=== PATIENT | female | born 1980 | race Caucasian/White ===

== ENCOUNTER 2018-12-14 21:54 | Emergency (ER) | payer OTHER ==
[2018-12-14 22:07] VITALS: BP 153/76; PULSE 116; TEMP 99; BMI 24.6
--- NOTE | 2018-12-14 22:21 | PDOC ---
Attending Attestation - HPI HPI: 12/14/18 22:22 The patient is a 38 year old female, with a significant past medical history of DM, who presents to the emergency department with, a laceration to the left wrist. Patient notes the metal portion of her broom lacerated from her left forearm to hand. Patient is left hand dominant. She denies recent fevers, chills, headache or dizziness. She denies recent nausea, vomit, diarrhea or constipation. She denies recent dysuria, frequency, urgency or hematuria. She denies recent chest pain or shortness of breath. Allergies: Contrast (IV and Oral) - Physicial Exam PE: 12/14/18 22:22 Agree with resident exam. <Raúl Daniel - Last Filed: 12/14/18 22:21> - Resident Resident Name: Russell Mann - ED Attending Attestation I have performed the following: I have examined & evaluated the patient, The case was reviewed & discussed with the resident, I agree w/resident's findings & plan - Medical Decision Making 12/14/18 22:32 38-year-old female with abrasion and avulsion to the left hand Wound cleansed extensively See resident note for full description of procedure Hand neurovascularly intact distally Coagulation dressing applied as well as Steri-Strips Patient will be discharged on antibiotics with a wound check in 48 hours due to history of diabetes <Marlen Valencia - Last Filed: 12/14/18 22:33> Attestations - Attestations 12/14/18 22:22 Documentation prepared by Raúl Daniel, acting as medical detail representative for Marlen Valencia DO. <Raúl Daniel - Last Filed: 12/14/18 22:21>
[2018-12-14] MEDS ORDERED: DIPHTH,PERTUSS(ACELL),TET 0.5 ML DISP.SYRIN IM ONE ×2 (22:45→22:46)
--- NOTE | 2018-12-14 22:50 | PDOC ---
History of Present Illness - General Chief Complaint: Laceration Stated Complaint: CUT ON LEFT LOWER ARM Time Seen by Provider: 12/14/18 22:20 History Source: Patient Exam Limitations: No Limitations - History of Present Illness Initial Comments: 12/14/18 23:20 The patient is a 38F with a PMH of DM who presents to the ER with complaints of a hand abrasion. The patient states that she was cleaning off her car with a broom and the metal part of the broom cut her hand. She denies numbness, tingling, and weakness in her hand. She denies any other injuries. Past History - Past Medical History Allergies/Adverse Reactions: Allergies Allergy/AdvReac Type Severity Reaction Status Date / Time Iodinated Contrast- Oral and Allergy Verified 12/14/18 22:01 IV Dye [Iodinated Contrast Media - IV Dye] Home Medications: Ambulatory Orders Insulin (Novolog) [Novolog -] 0 units SQ ACHS 06/02/14 Canagliflozin [Invokana] 100 mg PO PRN 01/13/17 Insulin Glargine,Hum.rec.anlog [Lantus Solostar PEN (NF)] 40 units SQ HS Cephalexin Monohydrate [Keflex -] 500 mg PO BID #10 capsule 12/14/18 Cephalexin Monohydrate [Keflex -] 500 mg PO BID #10 capsule 12/14/18 Ibuprofen 400 mg PO QID PRN #10 tablet 12/14/18 COPD: No Diabetes: Yes (TYPE 2) GI Disorders: Yes (colitis) - Surgical History Abdominal Surgery: Yes (bilateral tubal ligation) - Suicide/Smoking/Psychosocial Hx Smoking Status: Yes Smoking History: Never smoked Number of Cigarettes Smoked Daily: 2 'Breaking Loose' booklet given: 01/13/17 Hx Alcohol Use: No Drug/Substance Use Hx: No Substance Use Type: None Hx Substance Use Treatment: No Review of Systems - Review of Systems Able to Perform ROS?: Yes Is the patient limited Tamazight proficient: No Constitutional: No: Chills, Fever HEENTM: No: Blurred Vision Respiratory: No: Cough, Shortness of Breath Cardiac (ROS): No: Chest Pain, Syncope ABD/GI: No: Nausea, Vomiting Integumentary: Yes: Other (Abrasion over L hand) Neurological: No: Numbness, Tingling, Weakness *Physical Exam - Vital Signs Last Vital Signs Temp Pulse Resp BP Pulse Ox 99 F 116 H 20 153/76 99 12/14/18 22:01 12/14/18 22:01 12/14/18 22:01 12/14/18 22:01 12/14/18 22:01 - Physical Exam General Appearance: Yes: Nourished, Appropriately Dressed. No: Apparent Distress HEENT: positive: Normal Voice, Hearing Grossly Normal Integumentary: positive: Other (6cm superficial abrasion over palmar surface of L hand, clean) Moderate Sedation - Procedure Monitoring Vital Signs: Procedure Monitoring Vital Signs Temperature 99 F 12/14/18 22:01 Pulse Rate 116 H 12/14/18 22:01 Respiratory Rate 20 12/14/18 22:01 Blood Pressure 153/76 12/14/18 22:01 O2 Sat by Pulse Oximetry (%) 99 12/14/18 22:01 Procedures - Laceration/Wound Repair Left Volar Hand Wound Length: 5.0 to 7.5 cm Wound Explored: clean Wound's Depth, Shape: superficial Irrigated w/ Saline: Yes Betadine Prep: No Anesthesia: 1% Lidocaine Amount of Anesthetic (ccs): 2 Wound Debrided: minimal Wound Repaired With: Steri-strips Sterile Dressing Applied: Yes Splint Applied: No Sling Applied: No ED Treatment Course - Medications Given in the ED: ED Medications Discontinued Medications Generic Name Dose Route Start Last Admin Trade Name Sanyaq PRN Reason Stop Dose Admin Oxycodone/Acetaminophen 1 combo 12/14/18 22:24 12/14/18 22:35 Percocet 5/325 - PO 12/14/18 22:25 1 combo ONCE ONE Administration Oxycodone/Acetaminophen 1 combo 12/14/18 22:32 12/14/18 22:35 Percocet 5/325 - PO 12/14/18 22:33 1 combo ONCE ONE Administration Medical Decision Making - Medical Decision Making 12/14/18 23:23 The patient is a 38F with a PMH of DM who presents to the ER with a superficial hand abrasion. It was cleaned and surgicel was applied to the proximal wrist. Steri strips applied. Will give abx and d/c home with 48 hour f/u. *DC/Admit/Observation/Transfer Diagnosis at time of Disposition: Abrasion - Discharge Dispostion Disposition: HOME Condition at time of disposition: Stable Decision to Admit order: No - Prescriptions Prescriptions: Cephalexin Monohydrate [Keflex -] 500 mg PO BID #10 capsule Cephalexin Monohydrate [Keflex -] 500 mg PO BID #10 capsule Ibuprofen 400 mg PO QID PRN #10 tablet PRN Reason: Pain - Referrals Referrals: Eulogio Ruiz [Primary Care Provider] - - Patient Instructions Printed Discharge Instructions: DI for Laceration Repair Additional Instructions: Please follow up in the ER for a wound check in 48 hours. Keep the area clean and dry for 24 hours. After 24 hours, you can clean it gently and pat it dry. Please take your medications as prescribed. Please return to the ER if symptoms persist, worsen, or new symptoms arise. - Post Discharge Activity
== END 2018-12-14 23:21 | disposition home or self-care (01) ==
LOC: JER 21:54
PROC: 3E0234Z Introduction of Serum, Toxoid and Vaccine into Muscle, Percutaneous Approach (ICD-10-PCS; principal; 2018-12-14)
DX: S60.512A Abrasion of left hand, initial encounter (principal); W27.8XXA Contact with other nonpowered hand tool, initial encounter; Y93.89 Activity, other specified; Y92.89 Other specified places as the place of occurrence of the external cause; Y99.8 Other external cause status; E11.9 Type 2 diabetes mellitus without complications; Z79.4 Long term (current) use of insulin
CPT/HCPCS: 90471; 90715; 99283-25

== ENCOUNTER 2018-12-16 13:58 | Emergency (ER) | payer OTHER ==
[2018-12-16 14:24] VITALS: BP 101/59; TEMP 98.7; BMI 23.6
--- NOTE | 2018-12-16 15:21 | PDOC ---
Suture Removal/Wound Check HPI - History of Present Illness Chief Complaint: Revisit,Wound Recheck Stated Complaint: HAND INJURY Time Seen by Provider: 12/16/18 14:49 History Source: Yes: Patient, Old Records Exam Limitations: Yes: No Limitations Treated at: [facility] Date of Last ED visit: 12/14/18 - Previous ED Treatment Type of procedure performed on last visit: Yes: Laceration Repair Tetanus Immunization: Yes: Up to Date Past History - Past Medical History Allergies/Adverse Reactions: Allergies Allergy/AdvReac Type Severity Reaction Status Date / Time Iodinated Contrast- Oral and Allergy Verified 12/14/18 22:01 IV Dye [Iodinated Contrast Media - IV Dye] Home Medications: Ambulatory Orders Insulin (Novolog) [Novolog -] 0 units SQ ACHS 06/02/14 Canagliflozin [Invokana] 100 mg PO PRN 01/13/17 Insulin Glargine,Hum.rec.anlog [Lantus Solostar PEN (NF)] 40 units SQ HS Cephalexin Monohydrate [Keflex -] 500 mg PO BID #10 capsule 12/14/18 Cephalexin Monohydrate [Keflex -] 500 mg PO BID #10 capsule 12/14/18 Ibuprofen 400 mg PO QID PRN #10 tablet 12/14/18 COPD: No Diabetes: Yes (TYPE 2) GI Disorders: Yes (colitis) - Surgical History Abdominal Surgery: Yes (bilateral tubal ligation) - Immunization History Immunization Up to Date: Yes - Suicide/Smoking/Psychosocial Hx Smoking Status: Yes Smoking History: Never smoked Have you smoked in the past 12 months: No Number of Cigarettes Smoked Daily: 2 Information on smoking cessation initiated: No 'Breaking Loose' booklet given: 01/13/17 Hx Alcohol Use: No Drug/Substance Use Hx: No Substance Use Type: None Hx Substance Use Treatment: No *Physical Exam - Vital Signs Last Vital Signs Temp Pulse Resp BP Pulse Ox 98.7 F 101 H 20 101/59 L 99 12/16/18 14:20 12/16/18 14:20 12/16/18 14:20 12/16/18 14:20 12/16/18 14:20 Moderate Sedation - Procedure Monitoring Vital Signs: Procedure Monitoring Vital Signs Temperature 98.7 F 12/16/18 14:20 Pulse Rate 101 H 12/16/18 14:20 Respiratory Rate 20 12/16/18 14:20 Blood Pressure 101/59 L 12/16/18 14:20 O2 Sat by Pulse Oximetry (%) 99 12/16/18 14:20 Medical Decision Making - Medical Decision Making 12/16/18 15:32 This is a 38-year-old female with insulin-dependent diabetes initially seen here on 12/14 for laceration to the palmar aspect of her (dominant) hand and wrist. Wound was not closed at that time as there is significant abrasion and insufficient skin to allow for laceration repair with sutures. Steri-Strips were placed and patient was started on cephalexin. She was directed to return today for reevaluation. On exam, there are no signs of infection. She denies fevers/chills or any other systemic symptoms. 2 of the Steri-Strips have fallen off and wound is not yet well approximated. Wound was cleaned with saline and Steri-Strips reapplied. Petroleum gauze and sterile dressing placed. Patient referred to hand surgery for further evaluation. Repeat heart rate is 102. *DC/Admit/Observation/Transfer Diagnosis at time of Disposition: Insulin dependent diabetes mellitus Hand injury Qualifiers: Encounter type: initial encounter Laterality: left Qualified Code(s): S69.92XA - Unspecified injury of left wrist, hand and finger(s), initial encounter - Discharge Dispostion Disposition: HOME Condition at time of disposition: Stable - Referrals Referrals: Cristi Neff MD [Staff Physician] - Call tomorrow (Surgery) - Patient Instructions Printed Discharge Instructions: DI for Laceration Repair -- Simple Additional Instructions: -Keep the wound clean and dry, change dressings as discussed -Continue cephalexin for the full course -Follow up with hand surgery (referral enclosed) -Return here for signs of infection: redness, tenderness, pus, etc., or for any other concerning symptoms - Post Discharge Activity
[2018-12-16 15:44] VITALS: PULSE 93
== END 2018-12-16 15:43 | disposition home or self-care (01) ==
LOC: JERFT 13:58
DX: Z09 Encounter for follow-up examination after completed treatment for conditions other than malignant neoplasm (principal); S69.82XD Other specified injuries of left wrist, hand and finger(s), subsequent encounter; E10.9 Type 1 diabetes mellitus without complications; Z79.4 Long term (current) use of insulin; W27.8XXD Contact with other nonpowered hand tool, subsequent encounter
CPT/HCPCS: 99281-25

== ENCOUNTER 2021-09-29 17:52 | Emergency (ER) | payer OTHER ==
[2021-09-29 18:06] VITALS: TEMP 98.4; BMI 23.2
[2021-09-29] MEDS ORDERED: SODIUM CHLORIDE 1,000 ML IV STA (18:30)
[2021-09-29 19:08] LABS: BASO % 0.3 % (0-2.0); EOS % 0.8 % (0-4.5); HEMATOCRIT 37.4 % (32.4-45.2); HEMOGLOBIN 12.7 GM/dL (10.7-15.3); LYMPH % 15.8 % (8-40); MCH 29.3 pg (25.7-33.7); MCHC 33.9 g/dl (32.0-36.0); MEAN CELL VOLUME 86.7 fl (80-96); MEAN PLT VOLUME 7.1 fl (7.5-11.1); MONO % 8.9 % (3.8-10.2); NEUT % 74.2 % (42.8-82.8); PLATELET COUNT 227 10^3/uL (134-434); RBC 4.31 M/mm3 (3.60-5.2); RDW 14.9 % (11.6-15.6); WHITE BLOOD COUNT 6.2 K/mm3 (4.0-10.0)
[2021-09-29 19:14] LABS: EPI CELLS 2 /uL (0-25.1); HCG,QUALITATIVE URINE Negative; HYALINE CASTS 1 /uL (0-3.1); URINE APPEARANCE CLOUDY; URINE BACTERIA 3819 /uL (0-1359); URINE BILIRUBIN NEGATIVE (NEGATIVE); URINE COLOR YELLOW; URINE GLUCOSE (UA) 3+ (NEGATIVE); URINE KETONE NEGATIVE (NEGATIVE); URINE LEUK ESTERASE 2+ (NEGATIVE); URINE NITRITE NEGATIVE (NEGATIVE); URINE PROTEIN 1+ (NEGATIVE); URINE RBC 96 /uL (0-23.9); URINE UROBILINOGEN 0.2 mg/dL (0.2-1.0); URINE WBC 3411 /uL (0-25.8)
[2021-09-29 19:16] LABS: ALBUMIN 3.3 g/dl (3.4-5.0); CALCIUM 8.7 mg/dL (8.5-10.1)
[2021-09-29 19:17] LABS: BLOOD UREA NITROGEN 10.6 mg/dL (7-18)
[2021-09-29 19:21] LABS: TOT PROT 7.2 g/dl (6.4-8.2)
[2021-09-29] MEDS ORDERED: CEFTRIAXONE 1 GM in DEXTROSE 5%-WATER - 50 ML IVPB ONE (19:39)
[2021-09-29] MEDS ORDERED: ACETAMINOPHEN 1000 MG/100 ML BAG IVPB ONE (19:45)
[2021-09-29] MEDS ORDERED: ACETAMINOPHEN INJECTION 100 ML IVPB ONE (19:48)
[2021-09-29] MEDS ORDERED: CEFTRIAXONE 1 GM/50 ML BAG ONE (19:48)
[2021-09-29 20:25] LABS: BILIRUBIN,TOTAL 0.6 mg/dL (0.2-1)
[2021-09-29 20:40] VITALS: BP 110/63; PULSE 96
== END 2021-09-29 20:57 | disposition home or self-care (01) ==
LOC: JER 17:52
PROC: 3E03329 Introduction of Other Anti-infective into Peripheral Vein, Percutaneous Approach (ICD-10-PCS; principal; 2021-09-29)
PROC: 3E033NZ Introduction of Analgesics, Hypnotics, Sedatives into Peripheral Vein, Percutaneous Approach (ICD-10-PCS; 2021-09-29)
PROC: 3E0337Z Introduction of Electrolytic and Water Balance Substance into Peripheral Vein, Percutaneous Approach (ICD-10-PCS; 2021-09-29)
DX: N12 Tubulo-interstitial nephritis, not specified as acute or chronic (principal); E11.65 Type 2 diabetes mellitus with hyperglycemia
CPT/HCPCS: 36415; 80053; 81003; 84703; 85025; 87086; 87186; 96361; 96365; 96375; 99284-25; C9803-CS; U0003; U0005

== ENCOUNTER 2021-09-30 08:22 | Emergency (ER) | payer OTHER ==
[2021-09-30 08:39] VITALS: BP 144/80; PULSE 124; TEMP 98.5; BMI 23.9
[2021-09-30] MEDS ORDERED: TAMSULOSIN HCL 0.4 MG CAP PO ONE (08:56)
[2021-09-30] MEDS ORDERED: KETOROLAC TROMETHAMINE 30 MG/1 ML VIAL IM ONE (08:57)
[2021-09-30] MEDS ORDERED: TAMSULOSIN HCL 0.4 MG CAP ONE (09:10)
[2021-09-30] MEDS ORDERED: KETOROLAC TROMETHAMINE 30 MG/1 ML VIAL ONE (09:10)
[2021-09-30 10:33] LABS: BASO % 0.3 % (0-2.0); EOS % 0.1 % (0-4.5); HEMATOCRIT 34.4 % (32.4-45.2); HEMOGLOBIN 11.9 GM/dL (10.7-15.3); LYMPH % 4.7 % (8-40); MCH 29.7 pg (25.7-33.7); MCHC 34.8 g/dl (32.0-36.0); MEAN CELL VOLUME 85.4 fl (80-96); MONO % 8.5 % (3.8-10.2); NEUT % 86.4 % (42.8-82.8); PLATELET COUNT 200 10^3/uL (134-434); RBC 4.02 M/mm3 (3.60-5.2); RDW 14.9 % (11.6-15.6); WHITE BLOOD COUNT 9.4 K/mm3 (4.0-10.0)
[2021-09-30 11:31] LABS: BLOOD UREA NITROGEN 6.9 mg/dL (7-18); CALCIUM 8.4 mg/dL (8.5-10.1)
[2021-09-30 11:34] LABS: CREATININE 0.7 mg/dL (0.55-1.3)
[2021-09-30 11:36] LABS: BILIRUBIN,TOTAL 0.9 mg/dL (0.2-1); TOT PROT 6.7 g/dl (6.4-8.2)
== END 2021-09-30 11:55 | disposition home or self-care (01) ==
LOC: JER 08:22
PROC: 3E0233Z Introduction of Anti-inflammatory into Muscle, Percutaneous Approach (ICD-10-PCS; principal; 2021-09-30)
DX: R10.9 Unspecified abdominal pain (principal); N20.0 Calculus of kidney; N30.00 Acute cystitis without hematuria
CPT/HCPCS: 36415; 74176-TC; 80053; 85025; 96372; 99284-25

== ENCOUNTER 2021-10-22 23:51 | Observation (INO) | payer OTHER ==
[2021-10-23] MEDS ORDERED: ACETAMINOPHEN 1000 MG/100 ML VIAL IVPB ONE (00:56)
[2021-10-23] MEDS ORDERED: LACTATED RINGERS SOLUTION 1000 ML INFUS.BAG IV ONE (00:56)
[2021-10-23] MEDS ORDERED: METOCLOPRAMIDE HCL INJECTION 10 MG/2 ML VIAL IVPUSH ONE (00:56)
[2021-10-23 01:39] LABS: BASO % 0.7 % (0-2.0); EOS % 1.1 % (0-4.5); HEMATOCRIT 39.2 % (32.4-45.2); HEMOGLOBIN 13.5 GM/dL (10.7-15.3); LYMPH % 22.8 % (8-40); MCH 29.6 pg (25.7-33.7); MCHC 34.4 g/dl (32.0-36.0); MEAN PLT VOLUME 7.1 fl (7.5-11.1); MONO % 7.6 % (3.8-10.2); NEUT % 67.8 % (42.8-82.8); PLATELET COUNT 251 10^3/uL (134-434); RBC 4.55 M/mm3 (3.60-5.2); WHITE BLOOD COUNT 7.1 K/mm3 (4.0-10.0)
[2021-10-23] MEDS ORDERED: ACETAMINOPHEN INJECTION 100 ML IVPB ONE (01:47)
[2021-10-23] MEDS ORDERED: METOCLOPRAMIDE HCL INJECTION 10 MG/2 ML VIAL ONE (01:47)
[2021-10-23 02:01] LABS: URINE APPEARANCE CLEAR; URINE BILIRUBIN NEGATIVE (NEGATIVE); URINE COLOR YELLOW; URINE GLUCOSE (UA) 1+ (NEGATIVE); URINE KETONE TRACE (NEGATIVE); URINE LEUK ESTERASE NEGATIVE (NEGATIVE); URINE NITRITE NEGATIVE (NEGATIVE); URINE PROTEIN NEGATIVE (NEGATIVE); URINE UROBILINOGEN 0.2 mg/dL (0.2-1.0)
[2021-10-23 02:02] LABS: CALCIUM 9.2 mg/dL (8.5-10.1)
[2021-10-23 02:03] LABS: ALBUMIN 3.9 g/dl (3.4-5.0)
[2021-10-23 02:04] LABS: HCG,QUALITATIVE URINE Negative
[2021-10-23 02:06] LABS: CREATININE 0.8 mg/dL (0.55-1.3); VENOUS BASE EXCESS -3.5 mmol/L (-2-2); VENOUS O2 SATURATION 61.9 % (70-80); VENOUS PCO2 41.9 mmHg (38-52); VENOUS PH 7.34 (7.310-7.410)
[2021-10-23 02:08] LABS: BILIRUBIN,TOTAL 0.5 mg/dL (0.2-1); BLOOD UREA NITROGEN 13.9 mg/dL (7-18); TOT PROT 7.9 g/dl (6.4-8.2)
[2021-10-23] MEDS ORDERED: DEXTROSE 50%-WATER - 25 GM/50 ML VIAL IVPUSH ONE (03:39)
[2021-10-23] MEDS ORDERED: DEXTROSE 50%-WATER 25 GM/50 ML DISP.SYRIN ONE (03:39)
[2021-10-23] MEDS ORDERED: DEXTROSE 5%-WATER - 1,000 ML IV SCH (03:45)
[2021-10-23] MEDS ORDERED: DEXTROSE 5%-LACTATED RINGERS 1,000 ML IV SCH (03:45)
[2021-10-23] MEDS ORDERED: KCL 10 MEQ IVPB 10 MEQ/100 ML INFUS.BAG IVPB ONE (05:04)
[2021-10-23] MEDS ORDERED: KETOROLAC TROMETHAMINE 15 MG/ML VIAL IVPUSH ONE (05:42)
[2021-10-23] MEDS ORDERED: ACETAMINOPHEN/CAFFEINE/BUTALBITAL 1 TAB PO ONE (05:44)
[2021-10-23] MEDS ORDERED: KETOROLAC TROMETHAMINE 30 MG/1 ML VIAL ONE (05:48)
[2021-10-23] MEDS ORDERED: ACETAMINOPHEN/CAFFEINE/BUTALBITAL 1 TAB ONE (05:48)
[2021-10-23 12:14] LABS: BASO % 0.6 % (0-2.0); EOS % 2.3 % (0-4.5); HEMATOCRIT 31.2 % (32.4-45.2); HEMOGLOBIN 10.7 GM/dL (10.7-15.3); LYMPH % 35.5 % (8-40); MCH 29.9 pg (25.7-33.7); MCHC 34.2 g/dl (32.0-36.0); MEAN CELL VOLUME 87.2 fl (80-96); MEAN PLT VOLUME 7.4 fl (7.5-11.1); MONO % 8.6 % (3.8-10.2); PLATELET COUNT 223 10^3/uL (134-434); RBC 3.57 M/mm3 (3.60-5.2); RDW 14.9 % (11.6-15.6)
[2021-10-23 12:34] LABS: CALCIUM 8.2 mg/dL (8.5-10.1)
[2021-10-23 12:37] LABS: CREATININE 0.8 mg/dL (0.55-1.3)
[2021-10-23 12:39] LABS: BILIRUBIN,TOTAL 0.6 mg/dL (0.2-1)
[2021-10-23 12:44] VITALS: BMI 24.9
[2021-10-23 12:55] LABS: ALBUMIN 2.7 g/dl (3.4-5.0)
[2021-10-23] MEDS: INSULIN SLIDING SCALE (NOVOLOG) 1 VIAL SQ SCH (21:33)
[2021-10-24] MEDS ORDERED: MELATONIN 5 MG TABLETS PO PRN (01:31)
[2021-10-24] MEDS: INSULIN SLIDING SCALE (NOVOLOG) 1 VIAL SQ SCH ×2 (06:38→11:13)
[2021-10-24] MEDS ORDERED: INSULIN (LEVEMIR) 100 UNITS/ML UNITS SQ SCH (07:00)
[2021-10-24 14:22] VITALS: BP 118/68; PULSE 84; TEMP 99
[2021-10-24] MEDS ORDERED: INSULIN SLIDING SCALE (NOVOLOG) 1 VIAL SQ SCH (16:30)
[2021-10-25] MEDS ORDERED: INSULIN (LEVEMIR) 100 UNITS/ML UNITS SQ SCH (07:00)
== END 2021-10-24 17:43 | disposition home or self-care (01) ==
LOC: JER 23:51 → JERBED 10-23 03:01 → J5S 10-23 09:41
PROVIDERS: ADMIT Internal Medicine; ATTEND Family Medicine
PROC: 3E033NZ Introduction of Analgesics, Hypnotics, Sedatives into Peripheral Vein, Percutaneous Approach (ICD-10-PCS; principal; 2021-10-23)
PROC: 3E033GC Introduction of Other Therapeutic Substance into Peripheral Vein, Percutaneous Approach (ICD-10-PCS; 2021-10-23)
PROC: 3E013VG Introduction of Insulin into Subcutaneous Tissue, Percutaneous Approach (ICD-10-PCS; 2021-10-23)
PROC: 3E0333Z Introduction of Anti-inflammatory into Peripheral Vein, Percutaneous Approach (ICD-10-PCS; 2021-10-23)
PROC: 3E0337Z Introduction of Electrolytic and Water Balance Substance into Peripheral Vein, Percutaneous Approach (ICD-10-PCS; 2021-10-23)
DX: E10.649 Type 1 diabetes mellitus with hypoglycemia without coma (principal); E10.40 Type 1 diabetes mellitus with diabetic neuropathy, unspecified; Z79.4 Long term (current) use of insulin; Z86.16 Personal history of COVID-19; R55 Syncope and collapse; S69.90XA Unspecified injury of unspecified wrist, hand and finger(s), initial encounter; T14.8XXA Other injury of unspecified body region, initial encounter; J06.9 Acute upper respiratory infection, unspecified; N73.0 Acute parametritis and pelvic cellulitis; W18.39XA Other fall on same level, initial encounter; Y93.89 Activity, other specified; Y92.89 Other specified places as the place of occurrence of the external cause; Z91.041 Radiographic dye allergy status; Z01.84 Encounter for antibody response examination
CPT/HCPCS: 36415; 70450-TC; 71046-TC-FY; 80053; 81003; 82803; 82962; 83036; 84439; 84443; 84481; 84703; 85025; 87086; 87804; 93005; 93010; 96361; 96365; 96372; 96375; 99285-25; C9803; G0378; J0131; U0003; U0005

== ENCOUNTER 2021-11-10 11:10 | Emergency (ER) | payer OTHER ==
[2021-11-10 11:26] VITALS: BP 111/73; PULSE 104; TEMP 97; BMI 23.6
[2021-11-10 12:56] LABS: PH,URINE 5.5 (5.0-8.0); URINE APPEARANCE CLEAR; URINE BILIRUBIN NEGATIVE (NEGATIVE); URINE COLOR YELLOW; URINE GLUCOSE (UA) 3+ (NEGATIVE); URINE KETONE NEGATIVE (NEGATIVE); URINE LEUK ESTERASE NEGATIVE (NEGATIVE); URINE NITRITE NEGATIVE (NEGATIVE); URINE PROTEIN NEGATIVE (NEGATIVE); URINE UROBILINOGEN 0.2 mg/dL (0.2-1.0)
== END 2021-11-10 13:30 | disposition home or self-care (01) ==
LOC: JER 11:10
DX: R73.09 Other abnormal glucose (principal); T50.905A Adverse effect of unspecified drugs, medicaments and biological substances, initial encounter
CPT/HCPCS: 81003; 82962; 87077; 87086; 99283-25

== ENCOUNTER 2022-06-20 13:06 | Inpatient (IN) | payer OTHER ==
[2022-06-20 13:12] VITALS: BMI 24.7
[2022-06-20] MEDS ORDERED: SODIUM CHLORIDE 0.9% 500 ML INFUS.BAG IV ONE (15:32)
[2022-06-20] MEDS ORDERED: morphine CARPU-JECT 4 MG/1 ML DISP.SYRIN IVPUSH ONE (15:46)
[2022-06-20] MEDS ORDERED: HYDROmorphone HCL CARPU-JECT 2 MG/1 ML DISP.SYRIN IVPUSH ONE (15:49)
[2022-06-20] MEDS ORDERED: Methylnaltrexone Bromide 12 MG/0.6 ML KIT SQ ONE (15:52)
[2022-06-20] MEDS ORDERED: HYDROmorphone HCl 2 MG/ML VIAL ONE (15:52)
[2022-06-20 16:34] LABS: HEMATOCRIT 21.5 % (32.4-45.2); HEMOGLOBIN 7.5 GM/dL (10.7-15.3); MCH 30.6 pg (25.7-33.7); MEAN CELL VOLUME 87.4 fl (80-96); PLATELET COUNT 259 10^3/uL (134-434); RBC 2.46 M/mm3 (3.60-5.2); RDW 13.7 % (11.6-15.6); WHITE BLOOD COUNT 6.2 K/mm3 (4.0-10.0)
[2022-06-20 16:53] LABS: ALBUMIN 2.8 g/dl (3.4-5.0); CALCIUM 8.3 mg/dL (8.5-10.1); INR 0.96 (0.83-1.09)
[2022-06-20 16:54] LABS: BLOOD UREA NITROGEN 7.6 mg/dL (7-18)
[2022-06-20 16:56] LABS: ACTIVATED PTT 26.4 SECONDS (25.2-36.5)
[2022-06-20 16:57] LABS: CREATININE 0.5 mg/dL (0.55-1.3)
[2022-06-20 16:58] LABS: BILIRUBIN,TOTAL 1.5 mg/dL (0.2-1); TOT PROT 5.8 g/dl (6.4-8.2)
[2022-06-20] MEDS ORDERED: ONDANSETRON 4 MG/2 ML VIAL IVPUSH ONE (17:19)
[2022-06-20 19:07] LABS: ANISOCYTOSIS 1+; MACROCYTOSIS 0
[2022-06-20] MEDS ORDERED: morphine CARPU-JECT 2 MG/1 ML DISP.SYRIN IM PRN (20:41)
[2022-06-20] MEDS ORDERED: DOCUSATE SODIUM 100 MG CAPSULE (FP) PO SCH (21:00)
[2022-06-20] MEDS ORDERED: POLYETHYLENE GLYCOL (HEALTHYLAX) 3350 17 GM PACKET ONE (21:27)
[2022-06-20] MEDS ORDERED: SENNOSIDES 8.6MG TABLET (FP) PO ONE (21:28)
[2022-06-20] MEDS ORDERED: DOCUSATE SODIUM 100 MG CAPSULE (FP) PO ONE (21:28)
[2022-06-20] MEDS: POLYETHYLENE GLYCOL (HEALTHYLAX) 3350 17 GM PACKET PO SCH (21:43)
[2022-06-20] MEDS ORDERED: SENNOSIDES 8.6MG TABLET (FP) PO SCH (22:00)
[2022-06-21] MEDS ORDERED: MELATONIN 5 MG TABLETS PO ONE (00:05)
[2022-06-21] MEDS ORDERED: ACETAMINOPHEN 1000 MG/100 ML BAG IVPB PRN (00:05)
[2022-06-21] MEDS ORDERED: ACETAMINOPHEN 500 MG TABLET (FP) PO PRN (00:30)
[2022-06-21] MEDS ORDERED: MELATONIN 5 MG TABLETS ONE (00:40)
[2022-06-21] MEDS ORDERED: ACETAMINOPHEN 500 MG TABLET (FP) ONE (00:42)
[2022-06-21] MEDS: BISACODYL 10 MG SUPP.RECT PR PRN ×2 (02:30→17:15)
[2022-06-21] MEDS ORDERED: BISACODYL 10 MG SUPP.RECT ONE (02:35)
[2022-06-21] MEDS: morphine SULFATE 4 MG/ML VIAL IM PRN ×3 (03:45→17:14)
[2022-06-21] MEDS ORDERED: MELATONIN 5 MG TABLETS PO PRN (04:46)
[2022-06-21] MEDS: INSULIN SLIDING SCALE (NOVOLOG) 1 VIAL SQ SCH ×4 (07:45→21:29)
[2022-06-21] MEDS: DOCUSATE SODIUM 100 MG CAPSULE (FP) PO SCH ×2 (10:13→21:28)
[2022-06-21] MEDS: POLYETHYLENE GLYCOL (HEALTHYLAX) 3350 17 GM PACKET PO SCH (10:13)
[2022-06-21] MEDS: SENNOSIDES 8.6MG TABLET (FP) PO SCH ×2 (10:13→21:28)
[2022-06-21] MEDS: CEPHALEXIN MONOHYDRATE 500 MG CAPSULE (UD) PO SCH ×2 (10:13→21:29)
[2022-06-21 13:01] LABS: HEMATOCRIT 25.7 % (32.4-45.2); HEMOGLOBIN 9.1 GM/dL (10.7-15.3); MCH 31.1 pg (25.7-33.7); MCHC 35.3 g/dl (32.0-36.0); MEAN PLT VOLUME 6.6 fl (7.5-11.1); PLATELET COUNT 223 10^3/uL (134-434); RBC 2.93 M/mm3 (3.60-5.2); RDW 13.7 % (11.6-15.6); WHITE BLOOD COUNT 5.9 K/mm3 (4.0-10.0)
[2022-06-21 13:11] LABS: ALBUMIN 2.6 g/dl (3.4-5.0); BLOOD UREA NITROGEN 7.2 mg/dL (7-18); MAGNESIUM 1.8 mg/dL (1.8-2.4)
[2022-06-21 13:13] LABS: PHOSPHOROUS 3.3 mg/dL (2.5-4.9)
[2022-06-21 13:14] LABS: CREATININE 0.5 mg/dL (0.55-1.3)
[2022-06-21 13:15] LABS: BILIRUBIN,TOTAL 2.5 mg/dL (0.2-1); TOT PROT 5.5 g/dl (6.4-8.2)
[2022-06-21] MEDS: morphine SULFATE 4 MG/ML VIAL IV PRN (22:31)
[2022-06-22] MEDS: oxyCODONE HCL 5 MG TABLET PO PRN ×2 (03:24→12:12)
[2022-06-22] MEDS: INSULIN SLIDING SCALE (NOVOLOG) 1 VIAL SQ SCH ×2 (06:20→12:17)
[2022-06-22] MEDS: morphine SULFATE 4 MG/ML VIAL IV PRN (06:39)
[2022-06-22 08:32] LABS: HEMATOCRIT 25.6 % (32.4-45.2); HEMOGLOBIN 9.1 GM/dL (10.7-15.3); MCH 30.9 pg (25.7-33.7); MCHC 35.7 g/dl (32.0-36.0); MEAN CELL VOLUME 86.5 fl (80-96); PLATELET COUNT 235 10^3/uL (134-434); RBC 2.95 M/mm3 (3.60-5.2); RDW 13.9 % (11.6-15.6); WHITE BLOOD COUNT 6.5 K/mm3 (4.0-10.0)
[2022-06-22 08:50] LABS: BLOOD UREA NITROGEN 8.3 mg/dL (7-18)
[2022-06-22 08:53] LABS: CREATININE 0.5 mg/dL (0.55-1.3)
[2022-06-22 10:04] LABS: ANISOCYTOSIS 0; HELMET CELLS 0; HOWELL-JOLLY BODIES 0; MACROCYTOSIS 0; OVALOCYTE 0; ROULEAU 0; SICKELED CELLS 0; TARGET CELLS 0; TEAR DROP CELLS 0; TOXIC GRANULATION 0
[2022-06-22] MEDS ORDERED: SILVER SULFADIAZINE 1% TOP CREAM 50 GM JAR TP SCH (10:15)
[2022-06-22] MEDS: DOCUSATE SODIUM 100 MG CAPSULE (FP) PO SCH (10:45)
[2022-06-22] MEDS: SENNOSIDES 8.6MG TABLET (FP) PO SCH (10:46)
[2022-06-22] MEDS: CEPHALEXIN MONOHYDRATE 500 MG CAPSULE (UD) PO SCH (10:46)
[2022-06-22] MEDS: POLYETHYLENE GLYCOL (HEALTHYLAX) 3350 17 GM PACKET PO SCH (10:46)
[2022-06-22 14:15] VITALS: BP 121/65; PULSE 115; RESP 20; TEMP 98.6
[2022-06-22] MEDS: BISACODYL 10 MG SUPP.RECT PR PRN (15:04)
== END 2022-06-22 17:45 | disposition home or self-care (01) | DRG 663 ==
LOC: JER 13:06 → JERBED 18:57 → J7W 06-21 08:12
PROVIDERS: ADMIT Internal Medicine; ATTEND Internal Medicine
PROC: 30233N1 Transfusion of Nonautologous Red Blood Cells into Peripheral Vein, Percutaneous Approach (ICD-10-PCS; principal; 2022-06-20)
DX: D64.89 Other specified anemias (principal); M96.89 Other intraoperative and postprocedural complications and disorders of the musculoskeletal system; Y83.8 Other surgical procedures as the cause of abnormal reaction of the patient, or of later complication, without mention of misadventure at the time of the procedure; R23.3 Spontaneous ecchymoses; T40.2X5A Adverse effect of other opioids, initial encounter; K59.03 Drug induced constipation; E11.9 Type 2 diabetes mellitus without complications; Z79.4 Long term (current) use of insulin
CPT/HCPCS: 36415; 36430; 80048; 80053; 82962; 83010; 83605; 83615; 83735; 84100; 85025; 85027; 85610; 85730; 86850; 86900; 86901; 86922; 93005; 93010; 99285-25; C9803-CS; P9058; U0003; U0005

== ENCOUNTER 2023-01-30 01:05 | Emergency (ER) | payer OTHER ==
[2023-01-30 01:15] VITALS: BP 136/84; PULSE 57; RESP 18; TEMP 97.7; BMI 25.8
[2023-01-30] MEDS ORDERED: DEXTROSE 50%-WATER - 25 GM/50 ML VIAL IVPUSH ONE (02:03)
[2023-01-30] MEDS ORDERED: DEXTROSE 50%-WATER 25 GM/50 ML DISP.SYRIN ONE ×2 (02:18→02:20)
[2023-01-30] MEDS ORDERED: ACETAMINOPHEN 1000 MG/100 ML BAG IVPB ONE (02:30)
[2023-01-30] MEDS ORDERED: ACETAMINOPHEN INJECTION 100 ML IVPB ONE (03:00)
[2023-01-30 03:10] LABS: BASO % 0.3 % (0-2.0); EOS % 1.1 % (0-4.5); HEMATOCRIT 35.3 % (32.4-45.2); HEMOGLOBIN 12.2 GM/dL (10.7-15.3); LYMPH % 26.3 % (8-40); MCH 29.6 pg (25.7-33.7); MCHC 34.6 g/dl (32.0-36.0); MEAN CELL VOLUME 85.4 fl (80-96); MEAN PLT VOLUME 7.2 fl (7.5-11.1); MONO % 10.8 % (3.8-10.2); NEUT % 61.5 % (42.8-82.8); PLATELET COUNT 242 10^3/uL (134-434); RBC 4.13 M/mm3 (3.60-5.2); RDW 13.3 % (11.6-15.6)
[2023-01-30 03:26] LABS: CALCIUM 8.7 mg/dL (8.5-10.1)
[2023-01-30 03:27] LABS: ALBUMIN 3.4 g/dl (3.4-5.0); BLOOD UREA NITROGEN 11.2 mg/dL (7-18)
[2023-01-30 03:30] LABS: CREATININE 0.7 mg/dL (0.55-1.3)
[2023-01-30 03:31] LABS: BILIRUBIN,TOTAL 0.6 mg/dL (0.2-1)
[2023-01-30 03:32] LABS: TOT PROT 7.2 g/dl (6.4-8.2)
== END 2023-01-30 04:46 | disposition home or self-care (01) ==
LOC: JER 01:05
PROC: 3E033NZ Introduction of Analgesics, Hypnotics, Sedatives into Peripheral Vein, Percutaneous Approach (ICD-10-PCS; principal; 2023-01-30)
PROC: 3E033GC Introduction of Other Therapeutic Substance into Peripheral Vein, Percutaneous Approach (ICD-10-PCS; 2023-01-30)
PROC: 3E033GC Introduction of Other Therapeutic Substance into Peripheral Vein, Percutaneous Approach (ICD-10-PCS; 2023-01-30)
DX: E16.2 Hypoglycemia, unspecified (principal)
CPT/HCPCS: 36415; 80053; 82962; 85025; 99284-25

== ENCOUNTER 2023-10-26 22:28 | Emergency (ER) | payer OTHER ==
[2023-10-26 22:41] VITALS: BP 110/70; PULSE 113; RESP 18; TEMP 98.4; BMI 25.4
[2023-10-26] MEDS ORDERED: ONDANSETRON 4 MG/2 ML VIAL IVPUSH ONE (23:02)
[2023-10-26] MEDS ORDERED: ONDANSETRON *ODT* 4 MG TABLET SL ONE (23:14)
[2023-10-26] MEDS ORDERED: ONDANSETRON 4 MG/2 ML VIAL ONE (23:14)
[2023-10-26] MEDS ORDERED: ONDANSETRON *ODT* 4 MG TABLET ONE (23:15)
[2023-10-27 00:08] LABS: URINE APPEARANCE CLEAR; URINE COLOR YELLOW
[2023-10-27 00:10] LABS: URINE BILIRUBIN NEGATIVE (NEGATIVE); URINE GLUCOSE (UA) 3+ (NEGATIVE); URINE KETONE NEGATIVE (NEGATIVE)
[2023-10-27 00:11] LABS: URINE LEUK ESTERASE NEGATIVE (NEGATIVE); URINE NITRITE NEGATIVE (NEGATIVE); URINE PROTEIN NEGATIVE (NEGATIVE); URINE UROBILINOGEN 0.2 mg/dL (0.2-1.0)
[2023-10-27 00:12] LABS: URINE BACTERIA NEGATIVE /uL (0-1359); URINE RBC 0-5 /uL (0-23.9); URINE WBC 0-5 /uL (0-25.8)
[2023-10-27 00:29] LABS: HCG,QUALITATIVE URINE NEGATIVE
[2023-10-27] MEDS ORDERED: SODIUM CHLORIDE 0.9% 500 ML INFUS.BAG IV ONE (00:30)
[2023-10-27 02:08] LABS: VENOUS BASE EXCESS -2.5 mmol/L (-2-2); VENOUS O2 SATURATION 53.4 % (70-80); VENOUS PCO2 42.5 mmHg (38-52); VENOUS PH 7.351 (7.310-7.410)
[2023-10-27 02:11] LABS: BASO % 0.5 % (0-2.0); HEMATOCRIT 36.4 % (32.4-45.2); HEMOGLOBIN 12.4 GM/dL (10.7-15.3); LYMPH % 18.4 % (8-40); MEAN CELL VOLUME 88.2 fl (80-96); MEAN PLT VOLUME 7.4 fl (7.5-11.1); MONO % 9.7 % (3.8-10.2); NEUT % 68.4 % (42.8-82.8); PLATELET COUNT 259 10^3/uL (134-434); RBC 4.12 M/mm3 (3.60-5.2); RDW 14.2 % (11.6-15.6); WHITE BLOOD COUNT 7.4 K/mm3 (4.0-10.0)
[2023-10-27 02:43] LABS: POTASSIUM 4.1 mmol/L (3.5-5.1)
[2023-10-27 02:45] LABS: CALCIUM 8.7 mg/dL (8.5-10.1)
[2023-10-27 02:46] LABS: ALBUMIN 3.3 g/dl (3.4-5.0); BLOOD UREA NITROGEN 14.5 mg/dL (7-18)
[2023-10-27 02:49] LABS: CREATININE 0.8 mg/dL (0.55-1.3)
[2023-10-27 02:50] LABS: BILIRUBIN,TOTAL 0.4 mg/dL (0.2-1); TOT PROT 6.9 g/dl (6.4-8.2)
[2023-10-27] MEDS ORDERED: ALBUTEROL SO4 2.5/IPRATROPIUM 0.5 INH SOL 3 ML VIAL.NEB. NEB ONE (03:21)
[2023-10-27] MEDS: ALBUTEROL SO4 2.5/IPRATROPIUM 0.5 INH SOL 3 ML VIAL.NEB. NEB SCH ×2 (03:29→03:30)
== END 2023-10-27 03:51 | disposition home or self-care (01) ==
LOC: JER 22:28
DX: M79.10 Myalgia, unspecified site (principal); J02.9 Acute pharyngitis, unspecified; R09.81 Nasal congestion; R05.9 Cough, unspecified; R11.0 Nausea; B97.4 Respiratory syncytial virus as the cause of diseases classified elsewhere; E11.9 Type 2 diabetes mellitus without complications; Z79.4 Long term (current) use of insulin; Z20.822 Contact with and (suspected) exposure to COVID-19
CPT/HCPCS: 0241U-QW; 36415; 80053; 81003; 82010; 82803; 82962; 84703; 85025; 87651; 99283-25; Q0162

== ENCOUNTER 2024-01-05 15:19 | Emergency (ER) | payer OTHER ==
[2024-01-05 15:35] VITALS: TEMP 98.2; BMI 25.5
[2024-01-05] MEDS ORDERED: ONDANSETRON 4 MG/2 ML VIAL ONE (16:56)
[2024-01-05] MEDS ORDERED: KETOROLAC TROMETHAMINE 30 MG/1 ML VIAL ONE (16:56)
[2024-01-05] MEDS: ONDANSETRON 4 MG/2 ML VIAL IVPUSH ONE (17:15)
[2024-01-05] MEDS: SODIUM CHLORIDE 0.9% 500 ML INFUS.BAG IV ONE (17:15)
[2024-01-05] MEDS: KETOROLAC TROMETHAMINE 30 MG/1 ML VIAL IVPUSH ONE (17:15)
[2024-01-05 17:32] LABS: BASO % 0.6 % (0-2.0); EOS % 3.1 % (0-4.5); HEMATOCRIT 37.1 % (32.4-45.2); HEMOGLOBIN 12.5 GM/dL (10.7-15.3); LYMPH % 24.2 % (8-40); MCH 29.4 pg (25.7-33.7); MCHC 33.6 g/dl (32.0-36.0); MEAN CELL VOLUME 87.6 fl (80-96); MEAN PLT VOLUME 7.1 fl (7.5-11.1); MONO % 6.5 % (3.8-10.2); NEUT % 65.6 % (42.8-82.8); PLATELET COUNT 287 10^3/uL (134-434); RBC 4.23 M/mm3 (3.60-5.2); WHITE BLOOD COUNT 7.9 K/mm3 (4.0-10.0)
[2024-01-05 17:50] LABS: POTASSIUM 3.9 mmol/L (3.5-5.1)
[2024-01-05 17:52] LABS: ALBUMIN 3.2 g/dl (3.4-5.0); BLOOD UREA NITROGEN 11.6 mg/dL (7-18); CALCIUM 8.6 mg/dL (8.5-10.1)
[2024-01-05 17:55] LABS: CREATININE 0.7 mg/dL (0.55-1.3)
[2024-01-05 17:57] LABS: TOT PROT 7.2 g/dl (6.4-8.2)
[2024-01-05 18:25] VITALS: BP 121/65; PULSE 93; RESP 12
[2024-01-05] MEDS ORDERED: ACETAMINOPHEN 500 MG TABLET (FP) ONE (20:17)
[2024-01-05 20:30] LABS: THROAT:GRP A STREP NOT DETECTED (NOTDETECTED)
[2024-01-05] MEDS: ACETAMINOPHEN 500 MG TABLET (FP) PO ONE (20:46)
== END 2024-01-05 21:22 | disposition home or self-care (01) ==
LOC: JER 15:19
PROC: 3E033NZ Introduction of Analgesics, Hypnotics, Sedatives into Peripheral Vein, Percutaneous Approach (ICD-10-PCS; principal; 2024-01-05)
PROC: 3E033GC Introduction of Other Therapeutic Substance into Peripheral Vein, Percutaneous Approach (ICD-10-PCS; 2024-01-05)
DX: R05.9 Cough, unspecified (principal); R09.81 Nasal congestion; R06.02 Shortness of breath; J02.9 Acute pharyngitis, unspecified; R53.83 Other fatigue; R07.9 Chest pain, unspecified; R11.2 Nausea with vomiting, unspecified; R00.0 Tachycardia, unspecified; B34.9 Viral infection, unspecified; Z20.822 Contact with and (suspected) exposure to COVID-19
CPT/HCPCS: 0241U-QW; 36415; 71046-TC-FY; 80053; 83690; 85025; 87651; 99284-25

== ENCOUNTER 2024-01-18 20:12 | Emergency (ER) | payer OTHER ==
[2024-01-18 20:18] VITALS: BP 132/78; RESP 20; TEMP 98.3; BMI 25.7
[2024-01-18 20:20] VITALS: PULSE 110
[2024-01-18 21:13] LABS: HCG,QUALITATIVE URINE Negative
[2024-01-18 21:16] LABS: EPI CELLS 6 /uL (0-25.1); HYALINE CASTS 0 /uL (0-3.1); URINE APPEARANCE CLEAR; URINE BACTERIA >9,000 /uL (0-1359); URINE BILIRUBIN NEGATIVE (NEGATIVE); URINE COLOR YELLOW; URINE GLUCOSE (UA) 3+ (NEGATIVE); URINE KETONE 1+ (NEGATIVE); URINE LEUK ESTERASE NEGATIVE (NEGATIVE); URINE NITRITE POSITIVE (NEGATIVE); URINE PROTEIN NEGATIVE (NEGATIVE); URINE RBC 20 /uL (0-23.9); URINE UROBILINOGEN 0.2 mg/dL (0.2-1.0); URINE WBC 42 /uL (0-25.8)
[2024-01-18] MEDS ORDERED: CEFTRIAXONE 1 GM/50 ML BAG ONE (21:23)
[2024-01-18] MEDS ORDERED: ACETAMINOPHEN INJECTION 100 ML IVPB ONE (21:23)
[2024-01-18] MEDS ORDERED: ONDANSETRON *ODT* 4 MG TABLET ONE (21:23)
[2024-01-18] MEDS: SODIUM CHLORIDE 0.9% 500 ML INFUS.BAG IV ONE ×2 (21:44→23:09)
[2024-01-18] MEDS: ACETAMINOPHEN 1000 MG/100 ML BAG IVPB ONE (21:44)
[2024-01-18] MEDS ORDERED: METOCLOPRAMIDE HCL INJECTION 10 MG/2 ML VIAL ONE (21:45)
[2024-01-18] MEDS: METOCLOPRAMIDE HCL INJECTION 10 MG/2 ML VIAL IVPUSH ONE (21:51)
[2024-01-18] MEDS: ONDANSETRON 4 MG TABLET PO ONE (21:52)
[2024-01-18 21:57] LABS: BASO % 0.3 % (0-2.0); EOS % 0.6 % (0-4.5); HEMATOCRIT 38.9 % (32.4-45.2); HEMOGLOBIN 13.5 GM/dL (10.7-15.3); LYMPH % 31.6 % (8-40); MCH 30.3 pg (25.7-33.7); MCHC 34.7 g/dl (32.0-36.0); MEAN CELL VOLUME 87.3 fl (80-96); MEAN PLT VOLUME 7.4 fl (7.5-11.1); MONO % 10.1 % (3.8-10.2); NEUT % 57.4 % (42.8-82.8); PLATELET COUNT 236 10^3/uL (134-434); RBC 4.46 M/mm3 (3.60-5.2); RDW 14.3 % (11.6-15.6); WHITE BLOOD COUNT 3.1 K/mm3 (4.0-10.0)
[2024-01-18 22:10] LABS: CHLORIDE 102 mmol/L (98-107); POTASSIUM 4.1 mmol/L (3.5-5.1); SODIUM 137 mmol/L (136-145)
[2024-01-18 22:14] LABS: ALBUMIN 3.7 g/dl (3.4-5.0); ANION GAP 9 mmol/L (4-13); BLOOD UREA NITROGEN 18.1 mg/dL (7-18); CALCIUM 9.1 mg/dL (8.5-10.1); CO2 26 mmol/L (21-32)
[2024-01-18 22:17] LABS: CREATININE 0.9 mg/dL (0.55-1.3); SGOT/AST 24 U/L (15-37); SGPT/ALT 22 U/L (13-61)
[2024-01-18 22:19] LABS: BILIRUBIN,TOTAL 0.6 mg/dL (0.2-1); TOT PROT 7.8 g/dl (6.4-8.2)
[2024-01-18 22:20] LABS: ALK PHOS 80 U/L (45-117)
[2024-01-18 22:29] LABS: ACTIVATED PTT 27.3 SECONDS (25.2-36.5); INR 0.96 (0.83-1.09); PROTHROMBIN TIME (PATIENT) 11.1 SEC (9.7-13.0)
[2024-01-18 22:30] LABS: GLUCOSE,RANDOM 431 mg/dL (74-106)
[2024-01-19] MEDS ORDERED: SULFAMETHOXAZOLE/TRIMETHOPRIM 800MG/160MG D.S. TABLET PO ONE (01:21)
== END 2024-01-19 01:41 | disposition home or self-care (01) ==
LOC: JER 20:12
PROC: 3E030NZ Introduction of Analgesics, Hypnotics, Sedatives into Peripheral Vein, Open Approach (ICD-10-PCS; principal; 2024-01-18)
PROC: 3E030GC Introduction of Other Therapeutic Substance into Peripheral Vein, Open Approach (ICD-10-PCS; 2024-01-18)
PROC: 3E030GC Introduction of Other Therapeutic Substance into Peripheral Vein, Open Approach (ICD-10-PCS; 2024-01-18)
DX: R10.30 Lower abdominal pain, unspecified (principal); R11.2 Nausea with vomiting, unspecified; R00.2 Palpitations; R42 Dizziness and giddiness; R06.02 Shortness of breath; R09.81 Nasal congestion; R05.9 Cough, unspecified; E11.65 Type 2 diabetes mellitus with hyperglycemia; Z79.4 Long term (current) use of insulin; N39.0 Urinary tract infection, site not specified; J10.1 Influenza due to other identified influenza virus with other respiratory manifestations; Z20.822 Contact with and (suspected) exposure to COVID-19
CPT/HCPCS: 0241U-QW; 36415; 71046-TC-FY; 80053; 81003; 82962; 84443; 84484; 84703; 85025; 85379; 85610; 85730; 93005; 93010; 93970-TC; 99285-25; J0131

== ENCOUNTER 2024-04-17 20:42 | Emergency (ER) | payer OTHER ==
[2024-04-17 20:51] VITALS: BP 120/70; PULSE 108; RESP 18; TEMP 98.9; BMI 25.5
[2024-04-17] MEDS ORDERED: predniSONE 20 MG TABLET (UD) ONE (21:13)
[2024-04-17] MEDS ORDERED: FAMOTIDINE 20 MG TABLET ONE (21:13)
[2024-04-17] MEDS: FAMOTIDINE 20 MG TABLET PO ONE (21:20)
[2024-04-17] MEDS: predniSONE 20 MG TABLET (UD) PO ONE (21:20)
== END 2024-04-17 21:21 | disposition home or self-care (01) ==
LOC: JER 20:42 → JERFT 20:42
PROC: 3E023GC Introduction of Other Therapeutic Substance into Muscle, Percutaneous Approach (ICD-10-PCS; principal; 2024-04-17)
DX: L23.9 Allergic contact dermatitis, unspecified cause (principal)
CPT/HCPCS: 99284-25

== ENCOUNTER 2025-02-04 16:16 | Emergency (ER) | payer OTHER ==
[2025-02-04 16:25] VITALS: BMI 26.1
[2025-02-04] MEDS ORDERED: ACETAMINOPHEN INJECTION 100 ML ONE (17:25)
[2025-02-04 17:26] LABS: VENOUS BASE EXCESS 0.4 mmol/L (-2-2); VENOUS O2 SATURATION 73.1 % (70-80); VENOUS PCO2 42.6 mmHg (38-52); VENOUS PH 7.394 (7.310-7.410)
[2025-02-04 17:27] LABS: ABSOLUTE IMMATURE GRANULOCYTES 0.03 x10^3/uL (0.0-0.031); BASOPHILS # 0.05 x10^3/uL (0.01-0.08); EOSINOPHIL % 2.2 % (0.7-5.8); EOSINOPHILS # 0.19 x10^3/uL (0.04-0.36); HEMATOCRIT 38.6 % (34.1-44.9); HEMOGLOBIN 12.7 g/dL (11.2-15.7); MCHC 32.9 g/dl (32.2-35.5); MEAN CELL VOLUME 87.1 fl (79.4-94.8); MEAN PLT VOLUME 9.1 fl (9.4-12.3); MONOCYTE # 0.54 x10^3/uL (0.24-0.86); MONOCYTE % 6.4 % (4.7-12.5); PLATELET COUNT 337 x10^3/uL (182-369)
[2025-02-04 17:27] LABS: PH,URINE 6.5 (5.0-8.0); URINE APPEARANCE CLEAR; URINE BILIRUBIN NEGATIVE (NEGATIVE); URINE COLOR YELLOW; URINE GLUCOSE (UA) 3+ (NEGATIVE); URINE KETONE 1+ (NEGATIVE); URINE LEUK ESTERASE NEGATIVE (NEGATIVE); URINE NITRITE NEGATIVE (NEGATIVE); URINE PROTEIN NEGATIVE (NEGATIVE); URINE UROBILINOGEN 0.2 mg/dL (0.2-1.0)
[2025-02-04] MEDS: ACETAMINOPHEN 1000 MG/100 ML BAG IVPB ONE (17:31)
[2025-02-04 17:55] LABS: CHLORIDE 97 mmol/L (98-107); SODIUM 133 mmol/L (136-145)
[2025-02-04 18:00] LABS: ALBUMIN 3.8 g/dl (3.4-5.0); ANION GAP 6 mmol/L (4-13); BLOOD UREA NITROGEN 16.9 mg/dL (7-18); CALCIUM 9.4 mg/dL (8.5-10.1); CO2 30 mmol/L (21-32); MAGNESIUM 2.1 mg/dL (1.8-2.4)
[2025-02-04 18:02] LABS: CREATININE 1.4 mg/dL (0.55-1.3); SGOT/AST 17 U/L (15-37); SGPT/ALT 18 U/L (13-61)
[2025-02-04 18:04] LABS: PHOSPHOROUS 3.1 mg/dL (2.5-4.9); TOT PROT 7.6 g/dl (6.4-8.2)
[2025-02-04 18:05] LABS: BILIRUBIN,TOTAL 0.8 mg/dL (0.2-1)
[2025-02-04 18:07] LABS: ALK PHOS 93 U/L (45-117); GLUCOSE,RANDOM 465 mg/dL (74-106)
[2025-02-04] MEDS: SODIUM CHLORIDE 0.9% 500 ML INFUS.BAG IV ONE (18:17)
[2025-02-04] MEDS ORDERED: INSULIN ASPART SLIDING SCALE (NOVOLOG) 1 VIAL SQ ONE (18:37)
[2025-02-04] MEDS: INSULIN (NOVOLOG) ASPART 100 UNITS/ML 10ML VIAL SQ ONE (18:42)
[2025-02-04 19:57] VITALS: TEMP 97.7
[2025-02-04 20:21] VITALS: BP 107/67; PULSE 90; RESP 18
[2025-02-04] MEDS ORDERED: ALBUTEROL SO4 2.5/IPRATROPIUM 0.5 INH SOL 3 ML VIAL.NEB. NEB ONE (20:33)
[2025-02-04] MEDS ORDERED: INSULIN REGULAR HUMAN 100 UNITS/ML *VIAL ONE (20:34)
[2025-02-04] MEDS: ALBUTEROL SO4 2.5/IPRATROPIUM 0.5 INH SOL 3 ML VIAL.NEB. NEB ONE (20:37)
[2025-02-04] MEDS: INSULIN REGULAR HUMAN 100 UNITS/ML *VIAL IVPUSH ONE (20:38)
[2025-02-04] MEDS: LACTATED RINGERS SOLUTION 1000 ML INFUS.BAG IV ONE (20:53)
[2025-02-04 21:12] LABS: POTASSIUM 3.6 mmol/L (3.5-5.1)
[2025-02-04 21:14] LABS: CALCIUM 8.8 mg/dL (8.5-10.1)
[2025-02-04 21:16] LABS: ALBUMIN 3.4 g/dl (3.4-5.0); BLOOD UREA NITROGEN 16.4 mg/dL (7-18)
[2025-02-04 21:19] LABS: BILIRUBIN,TOTAL 0.4 mg/dL (0.2-1); TOT PROT 6.5 g/dl (6.4-8.2)
== END 2025-02-04 22:01 | disposition home or self-care (01) ==
LOC: JER 16:16
PROC: 3E033NZ Introduction of Analgesics, Hypnotics, Sedatives into Peripheral Vein, Percutaneous Approach (ICD-10-PCS; principal; 2025-02-04)
PROC: 3E033VG Introduction of Insulin into Peripheral Vein, Percutaneous Approach (ICD-10-PCS; 2025-02-04)
PROC: 3E013VG Introduction of Insulin into Subcutaneous Tissue, Percutaneous Approach (ICD-10-PCS; 2025-02-04)
PROC: 3E0F7GC Introduction of Other Therapeutic Substance into Respiratory Tract, Via Natural or Artificial Opening (ICD-10-PCS; 2025-02-04)
DX: E11.65 Type 2 diabetes mellitus with hyperglycemia (principal); Z79.4 Long term (current) use of insulin; R11.2 Nausea with vomiting, unspecified; R53.81 Other malaise; R05.9 Cough, unspecified; R10.31 Right lower quadrant pain
CPT/HCPCS: 0241U-QW; 36415; 71045-TC-FY; 80053; 81003; 82010; 82803; 82962; 83690; 83735; 83930; 84100; 85025; 87086; 87186; 93005; 93010; 99285-25; J0131